=== PATIENT | female | born 1995 | race Caucasian/White ===

== ENCOUNTER 2017-02-03 22:01 | Emergency (ER) | payer OTHER ==
[~2017-02-03] VITALS: Ht 162.6 cm; Wt 83.0 kg
--- NOTE | ~2017-02-03 | CR58 ---
[facility] A Service of [facility] & [facility] RADIOLOGY TEXT RESULTS PATIENT: AZAM YEH LOCATION: [facility] : [birth year] UNIT #: [id number] AGE: [address]: BHARGAV BULLOCK APRN SEX: F ORDER DR: [id number] [facility] [address] [place], [place] [address] [id number] E MR#: [id number] Acc #: [id number] NAME: AZAM YEH : 1995 SEX: F STUDY DATE/TIME: 02/04/2017 00:42 UNIT: [facility] ROOM: STUDY DESCRIPTION: CR Cervical Spine 2 or 3 Views Attending Physician: Bhargav Bullock Aprn Ordering Physician: Bhargav Bullock Aprn Primary Care Physician: Primary Care Physician No MEDICAL IMAGING REPORT This report is preliminary unless electronic signature is present EXAM Cervical spine 02/04 at 0042 hours INDICATION Neck pain for 5 days after a fall. FINDINGS Four views of the cervical spine are compared with 05/16/2011. No fracture or malalignment is seen. Vertebral body heights and disc spaces are normal. Prevertebral soft tissues are normal. IMPRESSION Normal cervical spine. Dictated by... Osmani Dowell Jr., M.D. THIS IS AN ELECTRONICALLY VERIFIED REPORT Osmani Dowell Jr., M.D. at 02/05/2017 12:51 AM NABEEL/yazmin TD: 02/04/2017 07:18 JOB #: [id number] MEDICAL IMAGING REPORT Page 1 of 1 COPY
--- NOTE | ~2017-02-03 | CT71 ---
[facility] A Service of [facility] RADIOLOGY TEXT RESULTS PATIENT: AZAM YEH LOCATION: [facility] : [birth year] UNIT #: [id number] AGE: [address]: BHARGAV BULLOCK APRN SEX: F ORDER DR: [id number] [facility] [address] [place], [place] [address] [id number] E MR#: [id number] Acc #: [id number] NAME: AZAM YEH : 1995 SEX: F STUDY DATE/TIME: 02/03/2017 22:50 UNIT: [facility] ROOM: STUDY DESCRIPTION: CT Head Wo Contrast Attending Physician: Bhargav Bullock Aprn Ordering Physician: Ed Doctor [id number] [facility] Primary Care Physician: Primary Care Physician No MEDICAL IMAGING REPORT This report is preliminary unless electronic signature is present EXAM Head CT 02/03 22:50 INDICATION Fall on 01/29/2017. Patient hit head. Patient now has numbness and tingling in the left side of the head with a headache. COMPARISON Comparison 10/11/2016. FINDINGS Axial noncontrast images were obtained from the skull base to the vertex. This CT examination was performed with one or more of the following radiation dose reduction techniques: automatic exposure control, adjustment of mA and/or kV according to patient size, and iterative reconstruction. Ventricular size and configuration are normal. There is no evidence of acute infarct or hemorrhage. There are no extra-axial fluid collections. No mass lesion or mass effect is seen. There are no skull fractures. IMPRESSION Normal noncontrast head CT. Dictated by... Osmani Dowell Jr., M.D. THIS IS AN ELECTRONICALLY VERIFIED REPORT Osmani Dowell Jr., M.D. at 02/05/2017 12:50 AM NABEEL/yazmin TD: 02/04/2017 06:22 JOB #: [id number] [facility] A Service of [facility] RADIOLOGY TEXT RESULTS PATIENT: AZAM YEH LOCATION: [facility] : [birth year] UNIT #: [id number] AGE: [address]: BHARGAV BULLOCK APRN SEX: F ORDER DR: MEDICAL IMAGING REPORT Page 1 of 1 COPY
[~2017-02-03 22:01] MED LIST: ALBUTEROL2.5 MG/0.5 INH; ALBUTEROL20 ml INH; NYSTATIN5 ML PO; SYMBICORT80 INH
[2017-02-04 01:18] LABS: AMPHETAMINE NEG (NEG); BARBITURATES NEG (NEG); BENZODIAZEPINES NEG (NEG); COCAINE NEG (NEG); MARIJUANA NEG (NEG); OPIATES POS (NEG); TRICYCLIC ANTIDEPRESSANTS NEG (NEG); U METHADONE NEG (NEG)
== END 2017-02-04 02:05 | disposition home or self-care (01) ==
LOC: CED 22:01
PROVIDERS: Nurse Practitioner Family
DX: F07.81 Postconcussional syndrome (principal); S13.4XXA Sprain of ligaments of cervical spine, initial encounter; F11.10 Opioid abuse, uncomplicated; Z79.899 Other long term (current) drug therapy; Z88.1 Allergy status to other antibiotic agents; Y04.0XXA Assault by unarmed brawl or fight, initial encounter; Y92.009 Unspecified place in unspecified non-institutional (private) residence as the place of occurrence of the external cause
CPT/HCPCS: 70450; 72040; 80307; 84703; 99284